=== PATIENT | male | born 1975 | race Caucasian/White ===

== ENCOUNTER 2025-06-13 20:39 | Emergency (ER) | payer OTHER, SELFPAY ==
--- OUTSIDE RECORDS SUMMARY | 2025-06-13 20:47 | XMS_ITS | Encounter Summary ---
Author Organization [facility] Address [address] [place] [address] Care Team Providers Care Tank Systems Maintainer Name Role Phone Unavailable Primary Care Provider Unavailabl e Encounter Details Date Type Department Care Team (Latest Contact Info) Description 10/20/1997 Outpatient Historical [facility] [phone] [place] [address] Valdemar Mcdonald MD NO ADDRESS ON FILE Vestibular neuronitis (Primary Dx) Social History Tobacco Use Types Packs/Day Years Used Date Smoking Tobacco: Never Assessed Sex and Gender Information Value Date Recorded Sex Assigned at Not on file 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
--- OUTSIDE RECORDS SUMMARY | 2025-06-13 20:47 | XMS_ITS | Clinical Summary ---
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
--- NOTE | 2025-06-13 20:48 | ECG_ITS ---
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
[2025-06-13 20:52] VITALS: BMI 26.4
[2025-06-13 20:58] VITALS: TEMP 36.9
--- NOTE | 2025-06-13 21:10 | CTR_ITS ---
PROCEDURE INFORMATION: Exam: CT Head Without Contrast Exam date and time: 06/13/2025 10:12 PM Age: 49 years old Clinical indication: Injury or trauma; Fall; Blunt trauma (contusions or hematomas); Additional info: Fall from deer stand 20ft TECHNIQUE: Imaging protocol: Computed tomography of the head without contrast. Radiation optimization: All CT scans at this facility use at least one of these dose optimization techniques: automated exposure control; mA and/or kV adjustment per patient size (includes targeted exams where dose is matched to clinical indication); or iterative reconstruction. COMPARISON: CT cervical spin wo con* [id number] 06/13/2025 10:12 PM RADIATION DOSE METRICS: Total DLP (mGy-cm): 254.7 FINDINGS: Brain: Nitesh cisterna magna is present. No acute intracranial hemorrhage. Bonilla-white differentiation is maintained. No evidence of acute ischemic stroke. No intracranial mass or mass effect is noted. Benign dural calcifications are present. Cerebral ventricles: No ventriculomegaly. Paranasal sinuses: Visualized sinuses are unremarkable. No fluid levels. Mastoid air cells: Visualized mastoid air cells are well aerated. Bones: Unremarkable. No acute fracture. Soft tissues: Unremarkable. CT/CT head wo con* [id number] IMPRESSION: 1. No acute intracranial hemorrhage. 2. No evidence of acute ischemic infarct.
--- NOTE | 2025-06-13 21:10 | XRR_ITS ---
PROCEDURE INFORMATION: Exam: XR Right Foot Exam date and time: 06/13/2025 9:30 PM Age: 49 years old Clinical indication: Injury or trauma; Fall; Blunt trauma; Foot; Right; Additional info: Fall 20ft, back pain->calcaneal FX? TECHNIQUE: Imaging protocol: Radiologic exam of the right foot. Views: 1 or 2 views. COMPARISON: No relevant prior studies available. FINDINGS: Bones/joints: Comminuted, intra-articular, fracture of the 5th metatarsal head. The remaining imaged osseous structures are intact. Joint spaces are maintained. No osseous erosions. Soft tissues: Soft tissue edema of the dorsal foot is noted. XR/XR foot RT 2V [id number] IMPRESSION: 1. Comminuted, intra-articular, fracture of the 5th metatarsal head. 2. Soft tissue edema of the dorsal foot is noted. 3. Given provided clinical history and height of fall, CT foot without contrast can be obtained to evaluate for underlying occult osseous injury.
--- NOTE | 2025-06-13 21:10 | CTR_ITS ---
PROCEDURE INFORMATION: Exam: CT Chest With Contrast; Diagnostic Exam date and time: 06/13/2025 10:19 PM Age: 49 years old Clinical indication: Injury or trauma; Injury date: 06/13/2025; Injury details: Fall from deer tand 20 ft in air; Additional info: Fall from deer stand 20ft, mid and low back pain TECHNIQUE: Imaging protocol: Diagnostic computed tomography of the chest with contrast. Radiation optimization: All CT scans at this facility use at least one of these dose optimization techniques: automated exposure control; mA and/or kV adjustment per patient size (includes targeted exams where dose is matched to clinical indication); or iterative reconstruction. Contrast material: [id number]; Contrast volume: 100 ml; Contrast route: INTRAVENOUS (IV); COMPARISON: CT cervical spin wo con* [id number] 06/13/2025 10:12 PM RADIATION DOSE METRICS: Total DLP (mGy-cm): 1080.99 FINDINGS: Lungs: Scattered strands and foci of confluence dependently, commonly related to chronic scarring or atelectasis though other etiologies including superimposed infection not totally excluded. Pleural spaces: Unremarkable. No pneumothorax. No pleural effusion. Heart: Unremarkable. No cardiomegaly. No pericardial effusion. Lymph nodes: Unremarkable. No enlarged lymph nodes. Vasculature: Unremarkable. No aortic aneurysm. Bones/joints: No definite acute fracture or internal hemorrhage. Soft tissues: Unremarkable. PROCEDURE INFORMATION: Exam: CT Abdomen And Pelvis With Contrast Exam date and time: 06/13/2025 10:19 PM Age: 49 years old Clinical indication: Injury or trauma; Injury date: 06/13/2025; Injury details: Fall from deer tand 20 ft in air; Additional info: Fall from deer stand 20ft, mid and low back pain TECHNIQUE: Imaging protocol: Computed tomography of the abdomen and pelvis with contrast. Radiation optimization: All CT scans at this facility use at least one of these dose optimization techniques: automated exposure control; mA and/or kV adjustment per patient size (includes targeted exams where dose is matched to clinical indication); or iterative reconstruction. Contrast material: [id number]; Contrast volume: 100 ml; Contrast route: INTRAVENOUS (IV); COMPARISON: No relevant prior studies available. RADIATION DOSE METRICS: Total DLP (mGy-cm): 1080.99 FINDINGS: Liver: Normal. No mass. Gallbladder and biliary ducts: Normal. No calcified stones. No ductal dilation. Pancreas: Normal. No ductal dilation. Spleen: Normal. No splenomegaly. Adrenal glands: Normal. No mass. Kidneys and ureters: Nonspecific although commonly benign renal cysts. Stomach and bowel: Fluid attenuation luminal material within several loops of small bowel, may be related to ingested material although can not exclude mild enteritis or diarrhea related process. Appendix: No evidence of appendicitis. Intraperitoneal space: Unremarkable. No free air. No significant fluid collection. Vasculature: Colonic diverticulosis predominantly sigmoid without definite significant acute inflammatory changes aortic atherosclerosis. Lymph nodes: Unremarkable. No enlarged lymph nodes. Urinary bladder: Unremarkable as visualized. Reproductive: Unremarkable as visualized. Bones/joints: No definite acute fracture or internal hemorrhage. Soft tissues: Unremarkable. CT/CT chest abdpel w/*[id number] IMPRESSION: No definite acute fracture or internal hemorrhage. IMPRESSION: No definite acute fracture or internal hemorrhage. COMMENTS: Consistent with the [employer]'s Incidental Findings Committee white paper (J Am Andreas Radiol 2018): Any incidental renal lesion less than 1 cm or classified as too small to characterize, or any incidental cystic renal lesion characterized as simple-appearing, is likely benign. No follow-up imaging is recommended for these lesions per consensus recommendations based on imaging criteria.
--- NOTE | 2025-06-13 21:10 | XRR_ITS ---
PROCEDURE INFORMATION: Exam: XR Left Foot Exam date and time: 06/13/2025 9:32 PM Age: 49 years old Clinical indication: Injury or trauma; Fall; Blunt trauma; Foot; Left; Additional info: Fall 20ft, back pain->calcaneal FX? TECHNIQUE: Imaging protocol: Radiologic exam of the left foot. Views: 1 or 2 views. COMPARISON: No relevant prior studies available. FINDINGS: Bones/joints: Normal. Soft tissues: Normal. XR/XR foot LT 2V [id number] IMPRESSION: No acute findings.
--- NOTE | 2025-06-13 21:13 | CTR_ITS ---
PROCEDURE INFORMATION: Exam: CT Cervical Spine Without Contrast Exam date and time: 06/13/2025 10:12 PM Age: 49 years old Clinical indication: Injury or trauma; Fall; Blunt trauma; Additional info: Fall from deer stand TECHNIQUE: Imaging protocol: Computed tomography of the cervical spine without contrast. Radiation optimization: All CT scans at this facility use at least one of these dose optimization techniques: automated exposure control; mA and/or kV adjustment per patient size (includes targeted exams where dose is matched to clinical indication); or iterative reconstruction. COMPARISON: CT head wo con* [id number] 06/13/2025 10:12 PM RADIATION DOSE METRICS: Total DLP (mGy-cm): 254.7 FINDINGS: Bones: No acute fracture. Normal alignment. No significant disc bulge or herniation. No severe spinal canal stenosis. No significant neural foraminal narrowing. Lungs: Lung apices are normal. Soft tissues: Unremarkable. CT/CT cervical spin wo con* [id number] IMPRESSION: No acute cervical spine fracture.
[2025-06-13 21:21] VITALS: BP 142/85; PULSE 77; RESP 18; O2SAT 98
[2025-06-13 21:34] LABS: Hematocrit 40.0 % (37-53); Hemoglobin 14.10 g/dL (11.27-16.99); Mean Corpuscular HGB Conc 35.3 g/dL (30-55); Mean Corpuscular Hemoglobin 29.6 pg (27-33); Mean Corpuscular Volume 83.9 fl (82-101); Nucleated Red Blood Cells % 0 %; Platelet Count 157 10^3/cmm (157-399); Red Blood Count 4.77 10^6/uL (3.85-5.65); White Blood Count 15.16 10^3/uL (3.29-11.43)
[2025-06-13 21:43] VITALS: RESP 18; O2SAT 97
[2025-06-13] MEDS: morphine 4 mg/mL SDV 1 mL IVP (21:43)
[2025-06-13 21:49] LABS: INR 0.99 (0.8-1.2); Prothrombin Time 13.80 SECONDS (12.1-14.9)
[2025-06-13 21:50] LABS: Partial Thromboplastin Time 23.6 SECONDS (23.9-36.7)
[2025-06-13] MEDS: ondansetron 2 mg/ML SDV 2 mL 8 MG IVP (21:50)
[2025-06-13 21:52] VITALS: BP 133/76; PULSE 74; O2SAT 96
[2025-06-13 21:52] LABS: Anion Gap 15.9 (5-19); Blood Urea Nitrogen 11 mg/dL (6-20); Calcium 9.5 mg/dL (8.5-10.5); Carbon Dioxide 24 mmol/L (22-29); Chloride 99 mmol/L (98-107); Creatinine Clr Calc Pharmacy 105.2840; Glucose 111 mg/dL (65-115); Osmolality Calculated 280 mOsm/kg (285-295); Potassium 3.9 mmol/L (3.5-5.1); Sodium 135 mmol/L (136-145)
[2025-06-13] MEDS: iohexol 350 mg/mL 500 mL Btl (per mL) IV (22:18)
[2025-06-13 23:00] VITALS: BP 120/68; PULSE 57; O2SAT 96
[2025-06-14 00:10] LABS: Glucose Urine UA Negative (Normal); Nitrate Urine Negative (Negative)
[2025-06-14 00:14] LABS: Add Urine Microscopic? YES
[2025-06-14 00:20] LABS: Specific Gravity, Urine 1.049 (1.005-1.030)
[2025-06-14 00:48] VITALS: BP 120/75; PULSE 59; O2SAT 99
--- NOTE | 2025-06-14 00:52 | W.ED.TRAUMA ---
HPI - Trauma General: Chief Complaint: Trauma Stated Complaint: fall from deer stand 20 ft Time Seen by Provider: 06/13/25 20:55 History of Present Illness: Patient is a 49-year-old male with no past medical history who presents after a fall from a height of approximately 15FT from a deer stand, occurring before dark in a wooded area, but at some point broke his fall and was able to slow himself down along the tree. He denies loss of consciousness and head trauma. Primary complaints are back pain and right foot pain, with the latter described as pain along the outside edge of the foot. He is able to ambulate and has walked since the incident. He denies numbness or tingling in the legs, but notes pain with deep inspiration. No urinary symptoms or hematuria reported. He has taken ibuprofen and a muscle relaxant for pain prior to arrival with mild relief. He takes no daily medications. Associated symptoms: Reports back pain Related Data Previous Rx's ?Medication ?Instructions ?Recorded cyclobenzaprine 10 mg tablet 10 mg PO TID PRN muscle spasm #20 06/14/25 tabs oxycodone 5 mg tablet 5 mg PO TID PRN pain #10 tabs 06/14/25 Allergies Allergy/AdvReac Type Severity Reaction Status Date / Time No Known Allergies Allergy Verified 06/13/25 20:57 Review of Systems Musc: Reports: back pain and extremity pain Physical Exam Narrative: EXAM NARRATIVE: Patient well-appearing, vital stable, no acute distress. Primary survey with intact airway, bilateral and clear breath sounds, 2+ pulses throughout with no signs of hemorrhagic shock, GCS 15, patient adequately exposed. Secondary survey with no signs of facial trauma, neck supple, pupils equal round reactive, no chest wall or abdominal tenderness, no overlying skin changes, mild mid thoracic midline tenderness and right paravertebral as well. Stable pelvis, right foot with no obvious deformity but swelling to the lateral side, some bruising, neuro vastly intact, 2+ DP and PT pulse, full range of motion at ankle. All other joints of this and the other 3 extremities with full range of motion and no tenderness. Course Vital Signs: Vital signs: Vital Signs Temperature 98.4 F 06/13/25 20:58 Pulse Rate 59 L 06/14/25 00:48 Respiratory Rate 16 06/14/25 00:59 Blood Pressure 120/75 06/14/25 00:48 Pulse Oximetry 99 06/14/25 00:48 Oxygen Delivery Me thod Room Air 06/13/25 23:00 MDM - Trauma Medical Decision Making -DDX: Mechanical fall, spinal fracture, back sprain, tarsal fracture, dislocation, soft tissue injury, concussion - Patient seemingly with large mechanism of trauma but seemingly somehow broke his fall which probably slowed him down and for the story appears very well and only seems to have mild superficial injuries but because of the reported possible mechanism, full CT trauma scans obtained and infected x-rays, basic laboratory studies. - He was given morphine for the pain, developed some eye heaviness and possible itching, no airway involvement, no hives, do not count this as an allergic reaction at this time but given Benadryl with subjective improvement. - CT trauma scans with no fractures, dislocations, internal organ injury. X-rays of his right foot showed a comminuted but nondisplaced right metatarsal fracture, it is closed so no antibiotics needed. He improved pain ruano, was placed in the boot and given crutches as needed and advised to follow-up with orthopedics in a week. He had no episodes of syncope or development of any other symptoms while in the ED. Tertiary exam with no significant other findings. He was able to ambulate with the crutches without issue and with his pain controlled, p.o. appropriately he was deemed stable for discharge home with supportive care recommendations, orthopedic follow-up, strict return precautions given, at bedside. Lab Data 06/13/25 21:30 06/13/25 21:30 Radiology Impressions Chest/Abdomen/Pelvis CT 06/13/25 21:10 IMPRESSION: No definite acute fracture or internal hemorrhage. IMPRESSION: No definite acute fracture or internal hemorrhage. COMMENTS: Consistent with the [employer]'s Incidental Findings Committee white paper (J Am Andreas Radiol 2018): Any incidental renal lesion less than 1 cm or classified as too small to characterize, or any incidental cystic renal lesion characterized as simple-appearing, is likely benign. No follow-up imaging is recommended for these lesions per consensus recommendations based on imaging criteria. Foot X-Ray 06/13/25 21:10 IMPRESSION: No acute findings. Head CT 06/13/25 21:10 IMPRESSION: 1. No acute intracranial hemorrhage. 2. No evidence of acute ischemic infarct. Cervical Spine CT 06/13/25 21:13 IMPRESSION: No acute cervical spine fracture. Laboratory Results WBC 15.16 10^3/uL (3.29-11.43) H 06/13/25 21:30 RBC 4.77 10^6/uL (3.85-5.65) 06/13/25 21:30 Hgb 14.10 g/dL (11.27-16.99) 06/13/25 21: Hct 40.0 % (37-53) 06/13/25 21:30 MCV 83.9 fl (82-101) 06/13/25: MCH 29.6 pg (27-33) 06/13/25: MCHC 35.3 g/dL (30-55) 06/13/25:30 RDW 13.0 % (12.1-15.1) 06/13/25:30 Plt Count 157 10^3/cmm (157-399) 06/13/25 21:30 MPV 10.8 fL (7.4-10.4) H 06/13/25 21:30 Neut % (Auto) 88.2 % 06/13/25: Lymph % (Auto) 5.5 % 06/13/25:30 Mcminn % (Auto) 5.4 % 06/13/25 21:30 Eos % (Auto) 0.1 % 06/13/25: Baso % (Auto) 0.1 % 06/13/25: Neut # (Auto) 13.36 10^3/uL (1.8-7.7) H 06/13/25 21:30 Lymph # (Auto) 0.8 10^3/uL (0.8-4.8) 06/13/25: Mcminn # (Auto) 0.8 10^3/uL (0.2-0.9) 06/13/25 21:30 Eos # (Auto) 0.0 10^3/uL (0.0-0.8) 06/13/25 21:30 Baso # (Auto) 0.0 10^3/uL (0.0-0.1) 06/13/25 21:30 Nucleated RBC % (auto) 0 % 06/13/25 21: Nucleated RBCs # 0.0 /100WBC 06/13/25 21: PT 13.80 SECONDS (12.1-14.9) 06/13/25 21:30 INR 0.99 (0.8-1.2) 06/13/25 21:30 APTT 23.6 SECONDS (23.9-36.7) L 06/13/25 21:30 Sodium 135 mmol/L (136-145) L 06/13/25 21:30 Potassium 3.9 mmol/L (3.5-5.1) 06/13/25 21: Chloride 99 mmol/L (98-107) 06/13/25 21: Carbon Dioxide 24 mmol/L (22-29) 06/13/25 21: Anion Gap 15.9 (5-19) 06/13/25 21:30 BUN 11 mg/dL (6-20) 06/13/25 21: Creatinine 1.0 mg/dL (0.7-1.2) 06/13/25 21:30 GFR Calculation 79.1 mL/min (90-130) L 06/13/25 21: Glucose 111 mg/dL (65-115) 06/13/25 21: Calculated Osmolality 280 mOsm/kg (285-295) L 06/13/25 21: Calcium 9.5 mg/dL (8.5-10.5) 06/13/25 21:30 Urine Color Yellow (Yellow) 06/14/25 00:01 Urine Appearance Clear (CLEAR) 06/14/25 00: Urine pH 6.0 (5-7) 06/14/25 00: Ur Specific [place] 1.049 (1.005-1.030) H 06/14/25 00:01 Urine Protein Negative (Negative) 06/14/25 00: Urine Glucose (UA) Negative (Normal) 06/14/25 00: Urine Ketones 1+ (Negative) H 06/14/25 00:01 Urine Blood Negative (Negative) 06/14/25 00:01 Urine Nitrate Negative (Negative) 06/14/25 00: Urine Bilirubin Negative (Negative) 06/14/25 00: Urine Urobilinogen 1.0 mg/dL (Negative) 06/14/25 00:01 Ur Leukocyte Esterase Negative (Negative) 06/14/25 00:01 Urine RBC 0-2 /hpf (0-2) 06/14/25 00:01 Urine WBC 0-5 /hpf (0-5) 06/14/25 00:01 Ur Squamous Epith Cells 0-5 /hpf (0-5) 06/14/25 00:01 Amorphous Sediment Not Reportable 06/14/25 00:01 Urine Bacteria None seen /hpf (NONE) 06/14/25 00:01 Hyaline Casts 0-4 /lpf H 06/14/25 00:01 All radiology interpretation(s) finalized by discharge EKG Data EKG 1: Interpretation: Normal sinus rhythm at 79 bpm, no CO, QRS, QTc prolongation, no ST elevation or depression. Discharge Plan Discharge Patient Disposition: Home Clinical Impression: Fall Qualifiers: Encounter type: initial encounter Qualified Code(s): W19.XXXA - Unspecified fall, initial encounter Metatarsal fracture Qualifiers: Encounter type: initial encounter Metatarsal bone: fifth Fracture type: closed Fracture alignment: nondisplaced Condition: Stable Prescriptions: New cyclobenzaprine 10 mg tablet 10 mg PO TID PRN (Reason: muscle spasm) Qty: 20 0RF oxycodone 5 mg tablet 5 mg PO TID MDD 15 mg PRN (Reason: pain) Qty: 10 0RF Discharge Orders: Discharge ED (Routine); Ordered 06/14/25 Ordered By: Danny Marques Referrals: Danny Miranda PA-C [Non-Staff, Orthopedics] Referral Note: For follow-up of fifth metatarsal comminuted fracture Clinical Impression: Metatarsal fracture Patient Instructions: Opioid Safety, Pain Management, Patient Portal & Geri Instructions Activity Restrictions/Additional Instructions: You were seen after your fall, you were evaluated with labs, x-rays and CT imaging which found you to have a fracture of the fifth metatarsal in your right foot, this was in multiple pieces and so needs to be immobilized and you need to be nonweightbearing on this foot until is evaluated by the orthopedic surgeon. Use the crutches when moving around and keep off the foot when possible but continue doing stretches of your toes and foot so the muscles do not get stiff. For the pain, alternate Tylenol 650 mg and ibuprofen 400 mg every 4 hours as needed. For breakthrough pain on top of this, use oxycodone 5 mg every 8 hours as needed. For any associated spasms or cramps, use the Flexeril 10 mg every 8 hours as needed. Use ice packs 20 minutes at a time every few hours help with the swelling. An appointment referral has been placed. The orthopedics clinic, if they do not call you within the next 3 to 4 days, call their clinic at the phone number listed above and follow-up for definitive and further management of your foot, repeat x-rays. Return to the ED with severe worsening of the pain or swelling of her foot, inability to move or feeling foot, fevers, any other emergent concerns. Print Language: [place]ralt[place] Coding Level of Care Code ED Picking Crew Supervisor for Cintia Carbajal
[2025-06-14 00:59] VITALS: RESP 16
[2025-06-14] MEDS: oxyCODONE 5 mg IR Tab/Cap PO (00:59)
== END 2025-06-14 01:02 | disposition home or self-care (01) ==
PROVIDERS: Emergency Provider Student in an Organized Health Care Education/Training Program
DX: S92.354A Nondisplaced fracture of fifth metatarsal bone, right foot, initial encounter for closed fracture (principal); W17.89XA Other fall from one level to another, initial encounter
CPT/HCPCS: 36415; 70450; 71260; 72125; 73620; 74177; 80048; 81001; 85025; 85610; 85730; 93005; 96374; 96375; 99285; J2270; J2405; J9999

== ENCOUNTER → 2025-06-27 10:49 | Outpatient (BNVA) | payer OTHER, SELFPAY | PROVIDERS: Visit Provider Podiatrist Foot & Ankle Surgery | DX: S92.351A Displaced fracture of fifth metatarsal bone, right foot, initial encounter for closed fracture (principal); W14.XXXA Fall from tree, initial encounter | CPT/HCPCS: 73630 ==

== ENCOUNTER → 2025-07-18 14:16 | Outpatient (BNVA) | payer OTHER, SELFPAY | PROVIDERS: Visit Provider Podiatrist Foot & Ankle Surgery | DX: S92.351A Displaced fracture of fifth metatarsal bone, right foot, initial encounter for closed fracture (principal); W14.XXXA Fall from tree, initial encounter | CPT/HCPCS: 73630 ==